=== PATIENT | female | born 1940 | race Caucasian/White ===

== ENCOUNTER → 2016-04-14 | Outpatient (CLI) | payer MEDICARE, OTHER ==
[~2016-04-14] MED LIST: ACTIGALL300 M1 PO; ANUSOL-HC CREAM30 GM TOP; ASCORBIC ACID500 MG PO; B-COMPLEX WITH1 EACH PO; BUMEX1 MG PO; CALCIUM 600 +1 EACH PO; CIPRO500 MG PO; CORDARONE,PACE200 MG PO; COUMADIN ** 9/62 MG PO; COUMADIN ** IA5 MG PO; COUMADIN **IA1 MG PO; COUMADIN **IA2.5 MG PO; DELTASONE5 MG PO; DULCOLAX10 MG R; FLORASTOR250 MG PO; K-TAB ER20 MEQ PO; LASIX40 MG PO; LEVOTHROID(SYN75 MCG PO; LEXAPRO10 MG PO; LIPITOR20 M1 PO; LOPRESSOR100 MG PO; MILK OF MA400 MG/5 M PO; MIRALAX17 GM PO; MOBIC7.5 MG PO; NACL TABS1 GM PO; NITROSTAT0.4 MG SL; OCEAN NASAL) (A44 ML NOSE; PAIN RELIEF650 MG PO; PROGRAF0.5 M1 PO; PROGRAF0.5 MG PO; PROTONIX40 MG PO; SUPER B COMPLE150 MG PO; TYLENOL325 MG PO; ULTRAM50 MG PO; VANCOCIN ORAL250 MG PO; VITAMIN B-12250 MCG PO; VITAMIN D-40400 UNIT PO; VITAMIN D35000 UNI1 PO; XANAX0.25 MG PO; ZAROXOLYN2.5 MG PO; ZOFRAN4 MG PO
== END | disposition disaster alternative care site (69) ==
LOC: LGSMG 15:43
DX: R31.9 Hematuria, unspecified (principal)

== ENCOUNTER → 2016-04-14 | Outpatient (CLI) | payer MEDICARE, OTHER | END | disposition disaster alternative care site (69) | LOC: GRAD 14:20 | DX: R31.9 Hematuria, unspecified (principal) ==

== ENCOUNTER → 2016-10-01 | Outpatient (CLI) | payer MEDICARE, OTHER | LOC: LGSMG 13:58 | DX: I12.9 Hypertensive chronic kidney disease with stage 1 through stage 4 chronic kidney disease, or unspecified chronic kidney disease (principal); N18.3 Chronic kidney disease, stage 3 (moderate); R31.9 Hematuria, unspecified ==

== ENCOUNTER 2016-10-05 17:30 | Inpatient (IN) | payer MEDICARE, OTHER ==
[~2016-10-05] VITALS: Ht 154.9 cm; Wt 52.2 kg
--- NOTE | ~2016-10-05 | HP ---
PATIENT'S NAME: MYRIAM REYES [facility] AGE: 76 Y [address] ROOM: [id number] [place], [place] [address] LOCATION: GPCU ADMIT DATE: 10/05/2016 History & Physical DISCHARGE DATE: FAMILY PHYSICIAN: Rio Magaña PA-C ATTENDING PHYSICIAN: JAZZY HASSAN DATE OF SERVICE: CHIEF COMPLAINT: PARESH on CKD stage 3 and exertional dyspnea, but it is getting better. HISTORY OF PRESENT ILLNESS: This is a 76-year-old female who is sent over here from the office from the Nephrology Clinic for management of PARESH on CKD stage 3. The patient was seen by chemical tank worker last Wednesday for an exertional dyspnea and with worsening of bilateral lower extremity edema and her diuretic regimen was increased. Bumex increased to 2 mg twice a day for 2 days and metolazone was increased from 2.5 mg every other day to 5 mg daily. Today, at followup clinic for followup, the patient's creatinine went up from 2.76 to 3, baseline creatinine 1.2-1.4. The patient also recently had a UTI and still on the ciprofloxacin 500 mg daily for 3 more days to finish. She also had a kidney stone followed by Dr. Pruitt as an outpatient and currently there is no surgical intervention needed, but just conservative management. The patient is pretty asymptomatic from the kidney stone problem. Today, the patient also had a followup echo performed at [facility] earlier today this morning, just as a regular followup echo. She says that since the thyroid regimen was increased, her leg edema has improved and her exertional dyspnea has also improved. She states she has been losing weight, but she does not recall her actual weight today from yesterday. She denies any chest pain. Her only complaint now is some exertional dyspnea, but it is much better than her usual exertional dyspnea from before. She denies any dysuria, urinary frequency, or urgency. She denies any fever or chills. REVIEW OF SYSTEMS: As mentioned in history of present illness. All other systems were reviewed and were negative except those mentioned in history of present illness. PAST MEDICAL HISTORY: 1. History of aortic valve replacement and aorta repair in February 2014. 2. Status post left atrial appendage closure, also in February 2014. 3. 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 4. History of chronic atrial fibrillation, with cardioversion in the past. PATIENT'S NAME: MYRIAM REYES [facility] AGE: 76 Y [address] ROOM: [id number] [place], [place] [address] [facility]: [facility] ADMIT DATE: 10/05/2016 History & Physical DISCHARGE DATE: FAMILY PHYSICIAN: Rio Magaña PA-C ATTENDING PHYSICIAN: JAZZY HASSAN 5. Long-term anticoagulation on Coumadin. 6. Hypertension. 7. CKD stage 3. 8. Primary hypothyroidism. 9. Gastroesophageal reflux disease with history of peptic ulcer disease in the past. 10. History of gout. ALLERGIES: PENICILLIN, OXYCODONE, AND CLINDAMYCIN, WHICH CAUSE ANAPHYLAXIS. HOME MEDICATIONS: Currently has been reconciled. SOCIAL HISTORY: Denies any cigarette, alcohol, or any illegal drug use. FAMILY HISTORY: Both parents had heart problems with a history of open heart surgery in the past. PAST SURGICAL HISTORY: 1. Liver transplant. 2. Aortic valve replacement. 3. Cardioversion for AFib in the past. 4. Left atrial appendage closure. 5. Aortic valve replacement in the past. PHYSICAL EXAMINATION: VITAL SIGNS: At the time of the evaluation, temperature 97.9, heart rate 85, respirations 16, blood pressure 138/64, saturation 96% on room air. GENERAL APPEARANCE: Alert and oriented x3, currently in no acute distress. HEENT: Pupils are equally round and reactive to light. Extraocular muscles intact. Anicteric sclerae. Nasal turbinates are normal bilaterally. Dry oral mucosa. There is a mildly painful, hard mass close to the left side of the neck. NECK: No JVD. CARDIOVASCULAR: Irregularly irregular rate and rhythm. No murmur, no rubs, no gallops. RESPIRATORY: Clear to auscultation. No rales, no rhonchi, no wheezing, no crackles. ABDOMEN: Soft, nontender, nondistended, normal bowel sounds present. No mass. EXTREMITIES: Very mild pitting edema in bilateral lower extremities. SKIN: No ulcer, no rash, no cyanosis. NEUROLOGICAL: Grossly nonfocal. PATIENT'S NAME: MYRIAM REYES [facility] AGE: 76 Y [address] ROOM: [id number] [place], [place] [address] LOCATION: [facility] ADMIT DATE: 10/05/2016 History & Physical DISCHARGE DATE: FAMILY PHYSICIAN: Rio Magaña PA-C ATTENDING PHYSICIAN: JAZZY HASSAN LABORATORY DATA: Blood work from the clinic based on the paperwork came with the patient when in the clinic on October 05, 2016, at 2:19 p.m., shows sodium 133, potassium 2.6, albumin 2.6, GFR 16.1, phosphorus 4.9, glucose 175, calcium 9.7, BUN 87, chloride 94, CO2 34.6, creatinine 3.0. IMAGING STUDIES: None. ASSESSMENT AND PLAN: 1. Regarding her acute kidney injury on chronic kidney disease stage 3: Likely cause could be from overdiuresis. The plan will be consult Nephrology, where chemical tank worker has already placed the orders for admission. The patient will get additional 500 mL of normal saline given that the patient states that she feels thirsty and has not voided since arrival. We will check a renal panel again in the morning. Further plan depends on clinical course and per Nephrology and we will hold all the diuretics for now. 2. Regarding her hypokalemia: This is from the diuresis. It will be replaced with p.o. potassium chloride given that the patient cannot tolerate IV potassium chloride due to the burning sensation on the IV infusion. We will give her 40 mEq 3 doses every 4 hours and then check a renal panel again. 3. Regarding her history of chronic diastolic congestive heart failure: We will get an echo report that was done today at [facility] to be faxed here tomorrow morning. I will hold off on the diuretics in the setting of acute kidney injury on chronic kidney disease stage 3. Further plan will depend on clinical course. 4. Regarding history of aortic valve replacement: INR goal should be 2.5- 3.5, given that she has history of atrial fibrillation. INR will be checked right now, and Coumadin dosing per pharmacy for goal INR of 2.5- 3.5. 5. Regarding history of atrial fibrillation: As mentioned before, INR goal will be 2.5-3.5 in the setting of aortic valve replacement in the past. Currently, the patient's heart rate is under good control. Home medications will be reconciled and then can be addressed once they are ready. 6. Regarding her hypertension: Continue home medications with holding parameter. Once the home medication list is reconciled, then can be addressed. 7. Regarding her hypothyroidism: We will check her TSH and modify the home dose of levothyroxine if necessary. 8. Regarding her history of liver transplant from primary biliary cirrhosis: Continue the home prednisone once the home medication list is reconciled. 9. Regarding her mass on the left side of the neck: We will check a CT scan PATIENT'S NAME: MYRIAM REYES [facility] AGE: 76 Y [address] ROOM: [place] [address] LOCATION: [facility] ADMIT DATE: 10/05/2016 History & Physical DISCHARGE DATE: FAMILY PHYSICIAN: Rio Magaña PA-C ATTENDING PHYSICIAN: JAZZY HASSAN of the neck to make sure it is not a hematoma or to see what is the mass about. CT scan will be done without contrast. In case this is hematoma, of course, Coumadin will be held. In the meantime, INR is pending. Further plan will depend on clinical course. Depending on the INR, Coumadin can be decided to be held or to be dosing per pharmacy for INR goal of 2.5-3.5. Currently, I will be checking a CBC, liver function, and PTT as well to make sure she is not anemic. Further plan will depend on clinical course. 10. Deep vein thrombosis prophylaxis: She is already on Coumadin. 11. She is a DO NOT RESUSCITATE/DO NOT INTUBATE. Time spent in care on the day of admission is 35 minutes, where 10 minutes was spent on chart review, the remaining of the time was spent in interview, physical examination, and counseling. The counseling includes going over the plan of care and also addressing all the questions and concerns that the patient had. I answered all her questions to her satisfaction. I also went over the plan of care with the nurse. Further plan will depend on clinical course. 12. Regarding her urinary tract infection, we will continue the ciprofloxacin as ordered by Nephrology. UA already performed and looks clean. MD JEB CORTEZ/edwardl /[id number] D: [id number] T: [id number] HISTORY & PHYSICAL
--- NOTE | ~2016-10-05 | CON ---
PATIENT'S NAME: MYRIAM REYES [facility] AGE: 76 Y [address] ROOM: [id number] [place], [place] [address] LOCATION: GPCU ADMIT DATE: 10/05/2016 Consultation DISCHARGE DATE: FAMILY PHYSICIAN: Rio Magaña PA-C ATTENDING PHYSICIAN: JAZZY HASSAN DATE OF CONSULTATION: 10/06/2016 REFERRING PHYSICIAN: Pearl Espinal REQUESTING PROVIDER: Dr. Vaughn. REASON FOR CONSULTATION: History of valvular heart disease and chronic diastolic CHF. CHIEF COMPLAINT: Exertional dyspnea. HISTORY OF PRESENTING ILLNESS: The patient is a pleasant 76-year-old female, who was actually transferred from the Nephrology Clinic to the hospital for management of acute on chronic kidney disease. The patient has extensive cardiac history including history of bioprosthetic Trifecta valve, aortic valve replacement placed in February 2014. She also had a left atrial appendage occlusion at that time. Post left atrial appendage occlusion 2 months post surgery revealed that the appendage is completely occluded. She does have history of large PFO versus ASD with vsya-cu-ndfam shunting. There is also evidence of moderate mitral regurgitation, moderate to severe tricuspid regurgitation. The patient has been continued on oral anticoagulation and that is reasonable given the history of increasing gradient across the aortic valve over the past few months as well as history of severe pulmonary hypertension. As long as she does not have any significant bleeding issues, it might be reasonable to continue that. The patient was complaining of increasing shortness of breath when we saw her on the at [place] and at that time, I did increase her metolazone to 2.5 mg a half hour prior to Bumex. She was also taking Bumex 1 mg b.i.d. She did follow up with a popcorn vendor and Dr. Vaughn did increase her diuretics further due to her significant symptoms of dyspnea on exertion as well as shortness of breath. Her Bumex was increased to 2 mg b.i.d. for two days and metolazone was increased to 5 mg daily from every other day. Her baseline creatinine is between 1.2 to 1.4; however, when she was seen in followup, her creatinine increased to 3 and she was hence sent to the hospital for close followup and evaluation. PATIENT'S NAME: MYRIAM REYES [facility] AGE: 76 Y [address] ROOM: [place] [address] LOCATION: GPCU ADMIT DATE: 10/05/2016 Consultation DISCHARGE DATE: FAMILY PHYSICIAN: Rio Magaña PA-C ATTENDING PHYSICIAN: JAZZY HASSAN The patient reports her breathing is quite stable since her diuretics were increased. She also has been doing fairly well in terms of a urine output on IV hydration as well as albumin. Her creatinine has improved some to 2.5. Her urine output was about 700 mL in the last 24 hours. All her antihypertensive agents are being held due to hypotension and her renal function is being monitored closely. She does not have any significant chest discomfort or pressure with exertion. She does not have any palpitations. Dyspnea on exertion is stable and chronic. She denies dizziness. She does not have any fever or chills. No changes in her strength, sensation, or speech. She does not have any changes in her urination. No fever or chills. REVIEW OF SYSTEMS: All review of systems discussed with the patient. Pertinent positives and negatives mentioned in the history of presenting illness. PAST MEDICAL AND PAST SURGICAL HISTORY: 1. History of Trifecta bioprosthetic aortic valve replacement and aorta repair in February 2014, status post left atrial appendage closure also in 2014. 2. History of liver transplant for primary biliary cirrhosis in 2001, on chronic immunosuppression. 3. History of chronic permanent atrial fibrillation. The patient is on long- term anticoagulation on Coumadin. 4. Hypertension. 5. CKD stage 3 to 4. 6. Primary hypothyroidism. 7. Gastroesophageal reflux disease with history of peptic ulcer disease and GI bleed in the past. 8. History of gout. ALLERGIES: PENICILLIN, OXYCODONE, AND CLINDAMYCIN. ALL CAUSE ANAPHYLAXIS. MEDICATIONS: Please see MAR. SOCIAL HISTORY: No alcohol, illicit drug abuse, or cigarette smoking at this time. FAMILY HISTORY: No premature coronary artery disease or sudden cardiac . PATIENT'S NAME: MYRIAM REYES [facility] AGE: 76 Y [address] ROOM: [place] [address] LOCATION: GPCU ADMIT DATE: 10/05/2016 Consultation DISCHARGE DATE: FAMILY PHYSICIAN: Rio Magaña PA-C ATTENDING PHYSICIAN: JAZZY HASSAN PHYSICAL EXAMINATION: VITAL SIGNS: Blood pressure is 98/51, pulse is 78, respirations 20. She is afebrile. Negative urine output of 700 mL overnight. GENERAL APPEARANCE: Alert and oriented x3, not in any apparent distress. HEENT: Head: Atraumatic, normocephalic. Nose: Nasal turbinates normal. Mucous membranes are dry. SKIN: Turgor increases to rigidity. Warm and dry. NECK: No obvious JVD. HEART: S1 and S2. Irregular rate and rhythm. A 3/6 systolic murmur best heard in the right lower sternal border as well as apex. LUNGS: Clear to auscultation bilaterally. Decreased breath sounds in the bases. No wheezing. ABDOMEN: Soft. Bowel sounds positive. EXTREMITIES: No significant lower extremity edema. NEURO: Able to move all extremities against gravity. MUSCULOSKELETAL: No significant joint swelling noted. LAB WORK: Sodium 138, potassium 3.9, chloride 99, CO2 of 32, glucose 119, BUN 81, creatinine 2.5. Albumin 2.1, globulin 4.7, AST 51, ALT 40, alkaline phosphatase 118, GFR 37. Magnesium 2.3. CPK 37, CK-MB 0.9. Troponin 0.040. ProBNP is 5936. WBC 5.9, H and H 9.3 and 29.1, and platelets are 86. INR is 2.4. Chest x-ray from today pending. Chest x-ray from 10/01 shows cardiac enlargement with vascular congestion. Echocardiogram from 10/05/2016 shows normal LV systolic function. There is evidence of moderate MR as well as moderately increased gradients across the Trifecta tissue bioprosthetic aortic valve. There is evidence of shunting from left to right suggestive of elevated left atrial pressures. IVC is dilated. There is evidence of pulmonary hypertension, mild to moderate TR. Normal LV systolic function. The patient is in atrial fibrillation, not able to comment accurately on diastolic function, elevated E to E prime suggestive of diastolic dysfunction. Full report to follow on [place]. IMPRESSION: 1. Chronic diastolic congestive heart failure, currently NYHA class III. 2. Chronic atrial fibrillation, status post left atrial appendage occlusion, rates are well controlled on beta-miles. 3. Hypertension, essential, well controlled. However, her antihypertensives are on hold given the hypotension from being hypovolemic from overdiuresis. PATIENT'S NAME: MYRIAM REYES [facility] AGE: 76 Y [address] ROOM: [id number] [place], [place] [address] LOCATION: GPCU ADMIT DATE: 10/05/2016 Consultation DISCHARGE DATE: FAMILY PHYSICIAN: Rio Magaña PA-C ATTENDING PHYSICIAN: JAZZY HASSAN 4. Acute on chronic kidney injury with significant worsening of her renal function, baseline creatinine 1.2 to 1.4. Her creatinine today is 2.5; however, she is having good urine output. We will hydrate her cautiously while monitoring her renal and heart failure function closely. Once she is euvolemic, we will reinitiate her antihypertensive agents as well as diuresis with close monitoring of her symptoms as well as her renal function. 5. History of primary biliary cirrhosis, status post liver transplant in 2001, on chronic immunosuppression. 6. History of nonrheumatic aortic valve insufficiency, status post Trifecta tissue aortic valve replacement in 2014 with increasing gradients and the mean gradient across the valve is about 25 mmHg. This has increased compared to her prior echocardiogram. Her peak velocities across the aortic valve are about 3.4 m/sec. Given the increasing gradient, it may be reasonable to continue the oral anticoagulation since she is not having any bleeding issues and has been tolerating it well since her surgery. There is some data to show that with increasing gradient, it may be reasonable to continue Coumadin as valvular thrombosis is sometimes a concern in these patients. 7. Moderate mitral regurgitation on echo and this has not changed significantly compared to her prior echocardiogram. 8. There is evidence of pulmonary hypertension on echocardiogram. Her previous RV systolic pressure was about 58 mmHg. Given her moderate to severe pulmonary hypertension, I think this is another indication to continue the Coumadin if possible with an INR goal of 2 to 3. 9. Chronic kidney disease stage 4. Most recent creatinine is 2.5. She is having good urine output. We will hold her diuretics for now. I agree with Nephrology. 10. Moderate tricuspid regurgitation as well as evidence of patent foramen ovale with left to right shunting. PLAN: At this time, we will need to monitor her renal function carefully with some IV hydration. We will re-initiate her diuretics once she is euvolemic as well as her antihypertensive agents. She is tolerating metoprolol 100 b.i.d. and that is being used for rate control at this point. Again, I think there is enough reason to continue Coumadin not for atrial fibrillation, but increasing gradient across the aortic valve as well as severe pulmonary hypertension. There is no evidence of PFO closure at this time. It is actually acting as a pop-off valve and is helpful for her. Her overall prognosis is quite poor given her cardiorenal syndrome and we will just need to monitor her very closely with strict instructions as to take an extra dose of diuretics with weight gain upon discharge. PATIENT'S NAME: MYRIAM REYES [facility] AGE: 76 Y [address] ROOM: [place] [address] [facility] ADMIT DATE: 10/05/2016 Consultation DISCHARGE DATE: FAMILY PHYSICIAN: Rio Magaña PA-C ATTENDING PHYSICIAN: JAZZY HASSAN Thank you very much for allowing us to participate in the care of Ms. Reyes. HARSH AVALOS MD AT/modl /[id number] d: [id number] t: 10/08/16 1700, CONSULTATION REPORT
[~2016-10-05 17:30] MED LIST changes: -ANUSOL-HC CREAM30 GM TOP; -CIPRO500 MG PO; -NITROSTAT0.4 MG SL; -OCEAN NASAL) (A44 ML NOSE; -SUPER B COMPLE150 MG PO; -TYLENOL325 MG PO; -VITAMIN B-12250 MCG PO; -ZAROXOLYN2.5 MG PO
--- NOTE | 2016-10-05 18:59 | NUR ---
Patient admitted to floor at 1815 as a direct admit from Dr. Vaughn's office with Acute Kidney Injury. Patient is alert, oriented, and able to make all needs known.
[2016-10-05 20:44] LABS: BILIRUBIN URINE NEGATIVE (NEGATIVE); BLOOD URINE 10 /UL (NEGATIVE); COLOR URINE YELLOW (YELLOW); GLUCOSE URINE NEGATIVE (NEGATIVE); KETONE URINE NEGATIVE (NEGATIVE); LEUKOCYTES URINE NEGATIVE /UL (NEGATIVE); NITRITE URINE NEGATIVE (NEGATIVE); PROTEIN URINE 15 mg/dL (NEGATIVE); SPEC GRAVITY URINE 1.005 (1.003-1.035); TURBIDITY URINE CLEAR (CLEAR); UROBILINOGEN URINE NORMAL (NORMAL)
[2016-10-05 21:01] LABS: BACTERIA URINE NEGATIVE (NEGATIVE); EPITHELIAL URINE 0-2 #/HPF (NEGATIVE); RBC URINE 0-2 #/HPF (NEGATIVE); WBC URINE NEGATIVE #/HPF (NEGATIVE)
[2016-10-05 23:24] LABS: BASOPHIL % 0.2 %; EOSINOPHIL % 0.2 %; HEMATOCRIT 29.1 % (33.0-46.0); HEMOGLOBIN 9.3 g/dL (10.0-15.0); IMMATURE GRANULOCYTE % 0.2 %; LYMPHOCYTE # 1.4 K/uL (0.8-4.0); LYMPHOCYTE % 27.1 %; MCH 31.8 pg (27.0-34.0); MCV 99.7 fl (83.0-98.0); MONOCYTE # 0.3 K/uL (0.0-1.0); MONOCYTE % 6.6 %; MPV 10.4 fl (9.4-12.4); NEUTROPHIL # (ANC) 3.4 K/uL (1.8-7.8); NEUTROPHIL % 65.7 %; NRBC % 0 /100WBC (0-0.00); PLATELET COUNT 86 K/uL (150-450); RBC 2.92 M/uL (3.50-5.50); RDW-CV 16.9 % (11.9-14.6); WBC 5.2 K/uL (4.0-11.0)
[2016-10-05 23:32] LABS: INR - (THERAPEUTIC) 2.43 (0.92-1.07); PROTIME 25.7 SECONDS (9.8-11.4)
[2016-10-05] MEDS ORDERED: COUMADIN ** 9/62 MG PO (23:38)
[2016-10-05] MEDS ORDERED: ZAROXOLYN2.5 MG PO (23:40)
[2016-10-05] MEDS ORDERED: NITROSTAT0.4 MG SL (23:41)
[2016-10-05] MEDS ORDERED: SUPER B COMPLE150 MG PO (23:42)
[2016-10-05] MEDS ORDERED: TYLENOL325 MG PO (23:42)
[2016-10-05 23:44] LABS: ALBUMIN 2.3 gm/dL (3.5-5.0); MAGNESIUM 2.3 mg/dL (1.8-2.6); TOTAL BILIRUBIN 1.8 mg/dL (0.0-1.5)
[2016-10-05] MEDS ORDERED: VITAMIN D35000 UNI1 PO (23:44)
[2016-10-05] MEDS ORDERED: VITAMIN B-12250 MCG PO (23:44)
[2016-10-05] MEDS ORDERED: CIPRO500 MG PO (23:45)
--- NOTE | 2016-10-06 04:37 | NUR ---
Significant Event: A/O x3. Afebrile. Denies pain. SBP 100-130s. HR 80s. LS clear/dim. No edema. Started KCL gtt, patient unable to tolerate/complained of pain in IV site with no other symptoms. KCL gtt dc'd. 40meq kcl x2 po given, 3rd dose @ 0600. NS @ 100/hr for 500ml. 40mg Protonix given. up standby assist. cardiac diet. Follow up: hematest x3 needed.
[2016-10-06 05:06] LABS: INR - (THERAPEUTIC) 2.43 (0.92-1.07); PROTIME 25.7 SECONDS (9.8-11.4)
[2016-10-06 05:12] LABS: ALBUMIN 2.1 gm/dL (3.5-5.0); CREATININE 2.4 mg/dL (0.5-1.1); PHOSPHORUS 3.8 mg/dL (2.5-4.9)
[2016-10-06 07:56] LABS: ANION GAP 10.9 (10.0-19.0); CALCIUM 9.1 mg/dL (8.5-10.5); CREATININE 2.5 mg/dL (0.5-1.1); POTASSIUM 3.9 mMol/L (3.7-5.1)
--- NOTE | 2016-10-06 12:54 | NUR ---
Introduced self and CM role to Irina. Irina tells me that she lives at home in [place], plan is to return there upon dismissald. Irina is but her doesn't live at home, he is in a memory care unit there in [place]. PCP is Dr.Aaron Magaña. Irina manages her own medications at baseline, the pharmacy sets up her pills in a pill box for her so she has no issues with managing her medications. She tells me that she has a FWW, 4WW and a cane at home that she uses on a regular basis, mostly when she is outside or walking long distances. Denies the need for any additional DME or HHC. Irina tells me that her daughter, Sofy will come and pick her up when she is ready to go home. She tells me that she has 4 daughters, 3 live in [place] and Sofy lives in [place], it is her eventual plan to move out with her other three daughters in [place], but they have to find a place for first before they can move out there. Left my name on her whiteboard incase any other additional questions come up. No other questions, needs or concerns. CM to continue to follow and assist. Plan home.
--- NOTE | 2016-10-06 16:30 | NUR ---
Significant Event:A/Ox3. VSS on RA. Afebrile. Albumin ordered Q12h to run over four hours. U/S of soft tissue at L)neck to be completed. Transfers SBA. Cream/suppository ordered for hemorroids. Follow up:Continue to monitor.
[2016-10-07 04:12] LABS: INR - (THERAPEUTIC) 2.4 (0.92-1.07); PROTIME 25.4 SECONDS (9.8-11.4)
[2016-10-07 04:20] LABS: ALBUMIN 2.9 gm/dL (3.5-5.0); ANION GAP 10.7 (10.0-19.0); CALCIUM 8.9 mg/dL (8.5-10.5); CREATININE 2.4 mg/dL (0.5-1.1); PHOSPHORUS 2.9 mg/dL (2.5-4.9); POTASSIUM 3.7 mMol/L (3.7-5.1)
--- NOTE | 2016-10-07 05:44 | NUR ---
Significant Event: PATIENT ORIENTED X3. VSS. 02 97-99% ON RA. HR 80-84. A-FIB. RESP 16-24. AFEBRILE. LUNGS CLEAR TO CLEAR AND DIMINISHED. BP 115-120 SYSTOLIC, 53-65 DIASTOLIC. IV TO L) FOREARM SALINE LOCKED. FLUSHES WELL, GOOD BLOOD RETURN. PATIENT SBA. VOIDS PER RESTROOM. PATIENT COMPLAINS OF GENERALIZED CHRONIC PAIN. TYLENOL GIVEN X1. PATIENT HAS SMALL MASS TO THE L) NECK AND IS SCHEDULED FOR AN MRI OF THIS AREA IN THE AM. PATIENT ALSO HAS REDNESS TO THE CHEST REPORTED FROM A PREVIOUS HEART SURGERY. NO BMS THIS SHIFT. BOWEL SOUNDS ACTIVE. 1+ EDEMA TO BILATERAL FEET AND ANKLES. UPON THIRD ASSESSMENT, PATIENT HAD NOSE BLEED. STOPPED SOON AFTER ON ITS OWN. PATIENT STATES THAT SHE IS USED TO NOSE BLEEDS. PATIENT ALSO HAD A DRY COUGH THAT ACCOMPANIED NOSE BLEED. KLEENEXS TO THE AREA AND PRESSURE APPLIED BY THE PATIENT STOPPED THE NOSE BLEED. PATIETNT PLEASANT AND COOPERATIVE. DAUGHTER VISITED EARLIER THIS SHIFT AND IS ACTIVE IN CARES. Follow up: MRI FOR MASS ON NECK THIS AM. CONTINUE TO MONITOR PER PLAN OF CARE.
[2016-10-07 16:22] LABS: BASOPHIL % 0.2 %; EOSINOPHIL # 0.1 K/uL (0.0-0.5); EOSINOPHIL % 1.2 %; HEMATOCRIT 27.9 % (33.0-46.0); HEMOGLOBIN 8.9 g/dL (10.0-15.0); IMMATURE GRANULOCYTE % 0.2 %; LYMPHOCYTE # 1.2 K/uL (0.8-4.0); LYMPHOCYTE % 25.6 %; MCH 31.8 pg (27.0-34.0); MCHC 31.9 gm/dL (32.0-36.5); MCV 99.6 fl (83.0-98.0); MONOCYTE # 0.5 K/uL (0.0-1.0); MONOCYTE % 10.6 %; MPV 9.8 fl (9.4-12.4); NEUTROPHIL % 62.2 %; NRBC % 0 /100WBC (0-0.00); PLATELET COUNT 82 K/uL (150-450); RDW-CV 17.5 % (11.9-14.6); WBC 4.8 K/uL (4.0-11.0)
--- NOTE | 2016-10-07 18:10 | NUR ---
Significant Event: pt up farah and in room standby. US done of left neck swelling. ICE can be applied prn pt refuse. Hgb redrawn this heather, dr Bobby here. 2 bms today, one sent for hematest. Pt daughther here with her. Pt needed applesauce with meds. Follow up:
[2016-10-08 04:37] LABS: EOSINOPHIL % 0.6 %; HEMOGLOBIN 8.2 g/dL (10.0-15.0); LYMPHOCYTE # 0.8 K/uL (0.8-4.0); LYMPHOCYTE % 21.9 %; MCH 31.1 pg (27.0-34.0); MCHC 31.5 gm/dL (32.0-36.5); MCV 98.5 fl (83.0-98.0); MONOCYTE # 0.4 K/uL (0.0-1.0); MPV 11.2 fl (9.4-12.4); NEUTROPHIL # (ANC) 2.4 K/uL (1.8-7.8); NEUTROPHIL % 67.5 %; NRBC % 0 /100WBC (0-0.00); PLATELET COUNT 74 K/uL (150-450); RBC 2.64 M/uL (3.50-5.50); RDW-CV 17.3 % (11.9-14.6); WBC 3.6 K/uL (4.0-11.0)
[2016-10-08 04:45] LABS: INR - (THERAPEUTIC) 2.12 (0.92-1.07); PROTIME 22.4 SECONDS (9.8-11.4)
[2016-10-08 04:52] LABS: ALBUMIN 2.7 gm/dL (3.5-5.0); ANION GAP 10.1 (10.0-19.0); CALCIUM 8.8 mg/dL (8.5-10.5); CREATININE 2.2 mg/dL (0.5-1.1); PHOSPHORUS 2.2 mg/dL (2.5-4.9); POTASSIUM 4.1 mMol/L (3.7-5.1)
--- NOTE | 2016-10-08 07:16 | NUR ---
Significant Event: PATIENT IS A/O X3. VSS. C/O PAIN. TYLENOL GIVEN. NOTICABLE CRACKLES TO LOWER BASES OF LUNGS, NOTICIABLE MURMUR, BOUNDING CAROTID PULSE. LIKELY NEEDS SOME LASIX DUE TO FLUID OVERLOAD. Follow up: ADDRESS FLUID OVERLOAD.
--- NOTE | 2016-10-08 13:34 | NUR ---
Talked with Juan Pablo' RN today about dismissal plans. She states that she is now having issues with being fluid overloaded so they are giving her IV Bumex to help with that and then maybe she can dismiss in a few days. I visited with Irina about this, she still tells me that her plan is to return home and her daughter will take her when she is ready to go. No other questions, needs or concerns. CM to continue to follow and assist.
--- NOTE | 2016-10-08 17:04 | NUR ---
PATIENT UP IN ROOM STAND BY ASSIST. VSS, SATS HIGH 90'S ON RA. PO BUMEX GIVEN. DAUGHTER AT BEDSIDE THIS AM.
[2016-10-09 04:58] LABS: INR - (THERAPEUTIC) 1.86 (0.92-1.07); PROTIME 19.7 SECONDS (9.8-11.4)
[2016-10-09 05:03] LABS: ALBUMIN 2.6 gm/dL (3.5-5.0); ANION GAP 10.5 (10.0-19.0); CALCIUM 8.7 mg/dL (8.5-10.5); PHOSPHORUS 2.8 mg/dL (2.5-4.9); POTASSIUM 3.5 mMol/L (3.7-5.1)
--- NOTE | 2016-10-09 11:00 | NUR ---
PT MOVED TO NO RISK W/ INTAKE AVERAGING 70%. WILL CONT ENSURE COMPACT BID TO MAINTAIN NUTRITION STATUS. WILL F/U IN 7-10 DAYS.
--- NOTE | 2016-10-09 19:26 | NUR ---
PATIENT UP TO CHAIR AND BR W/ STAND BY ASSIST. VSS, SATS HIGH 90'S ON RA. INCREASED BUMEX PO TO BID, GAVE PO POTASSIUM.
--- NOTE | 2016-10-10 04:01 | NUR ---
Significant Event: A&Ox3, SBP: 100-140s, HR: afib 90s-110s, 96% on room air, afebrile, denies pain. Dry cough noted. Voiding well, patient chooses to eat ice chips only tonight. Takes pills whole with applesauce. Up ad-fariba, steady gait. Rested well tonight. Follow up: continue with plan of care. Possible home in a few days.
[2016-10-10 05:53] LABS: INR - (THERAPEUTIC) 1.77 (0.92-1.07); PROTIME 18.7 SECONDS (9.8-11.4)
[2016-10-10 06:13] LABS: ALBUMIN 2.6 gm/dL (3.5-5.0); ANION GAP 10.9 (10.0-19.0); CALCIUM 8.6 mg/dL (8.5-10.5); CREATININE 1.9 mg/dL (0.5-1.1); PHOSPHORUS 2.9 mg/dL (2.5-4.9); POTASSIUM 3.9 mMol/L (3.7-5.1)
--- NOTE | 2016-10-10 17:41 | NUR ---
A&O. AD RIMA. NO C/O PAIN. LS CLEAR. VD PER BR BM X1 STRICT I&O, DAILY STANDING WT. CSM WNL. LABS TRENDING DOWN. SBP 120'S-150'S. HR A FIB 80'S-100'S. RA. AFEBRILE. 1200 FLUID RESTRICT. ICE CHIPS IV L FA SL. CONT PLAN OF CARE
--- NOTE | 2016-10-11 05:12 | NUR ---
Significant Event: A/O x3. Afebrile. Denies pain. VSS on RA. SBP 100-110s. Up adlib. Held lopressor for low blood pressure. 1-2+ lower leg edema. Cooperative with cares. Follow up: Continue to monitor per plan of care.
[2016-10-11 05:29] LABS: PROTIME 22.7 SECONDS (9.8-11.4)
[2016-10-11 05:32] LABS: INR - (THERAPEUTIC) 2.15 (0.92-1.07)
[2016-10-11 05:47] LABS: ALBUMIN 2.8 gm/dL (3.5-5.0); ANION GAP 10.4 (10.0-19.0); CALCIUM 8.8 mg/dL (8.5-10.5); CREATININE 1.7 mg/dL (0.5-1.1); POTASSIUM 3.4 mMol/L (3.7-5.1)
--- NOTE | 2016-10-11 15:41 | NUR ---
Significant Event:VSS.RA.TYLENOL GIVEN THIS AM FOR GENERALIZED PAIN WITH RELIEF.HAS BEEN UP IN THE ROOM INDEPENDENTLY. 40 MEQ OF KCL PO GIVEN THIS SHIFT. PROBABLY HOME TOMORROW. Follow up:WILL CONTINUE TO MONITOR PER PLAN OF CARE.
[2016-10-12 05:05] LABS: INR - (THERAPEUTIC) 2.32 (0.92-1.07); PROTIME 24.6 SECONDS (9.8-11.4)
[2016-10-12 05:09] LABS: ALBUMIN 2.7 gm/dL (3.5-5.0); ANION GAP 12.9 (10.0-19.0); CALCIUM 8.9 mg/dL (8.5-10.5); CREATININE 1.8 mg/dL (0.5-1.1); PHOSPHORUS 3.2 mg/dL (2.5-4.9); POTASSIUM 3.9 mMol/L (3.7-5.1)
--- NOTE | 2016-10-12 08:23 | NUR ---
Shift Summary: Patient is independent in the room. Tylenol for generalized aches and pains. Last dose with 0700 meds. Had 300ml output this shift. On strict I&O and daily wt. Takes meds with applesause. Plans to go home tomorrow.
--- NOTE | 2016-10-12 18:57 | NUR ---
PATIENT UP AD RIMA, UP TO CHAIR MOST OF SHIFT. CONTINUED IN A-FIB W/ RATES 80'S. SATS HIGH 90'S ON RA, SBP 90'S-108. FLUID RESTRICTION 1.2L /DAY ORDERED, INCREASED PO BUMEX.
[2016-10-13 03:59] LABS: BASOPHIL % 0.5 %; EOSINOPHIL % 0.5 %; HEMATOCRIT 27.5 % (33.0-46.0); HEMOGLOBIN 8.9 g/dL (10.0-15.0); IMMATURE GRANULOCYTE % 0.2 %; LYMPHOCYTE # 0.9 K/uL (0.8-4.0); LYMPHOCYTE % 22.7 %; MCH 32.5 pg (27.0-34.0); MCHC 32.4 gm/dL (32.0-36.5); MCV 100.4 fl (83.0-98.0); MONOCYTE # 0.3 K/uL (0.0-1.0); NEUTROPHIL # (ANC) 2.8 K/uL (1.8-7.8); NEUTROPHIL % 69.1 %; NRBC % 0 /100WBC (0-0.00); PLATELET COUNT 83 K/uL (150-450); RBC 2.74 M/uL (3.50-5.50); RDW-CV 17.9 % (11.9-14.6)
[2016-10-13 04:08] LABS: INR - (THERAPEUTIC) 2.32 (0.92-1.07); PROTIME 24.6 SECONDS (9.8-11.4)
[2016-10-13 04:15] LABS: ALBUMIN 2.7 gm/dL (3.5-5.0); ANION GAP 12.5 (10.0-19.0); CREATININE 1.9 mg/dL (0.5-1.1); PHOSPHORUS 3.3 mg/dL (2.5-4.9); POTASSIUM 3.5 mMol/L (3.7-5.1)
--- NOTE | 2016-10-13 04:42 | NUR ---
Significant Event: A/O x3. Afebrile. Denies pain. VSS on RA. SBP 93-131. HR 90s. LS clear dim. Up ad fariba. Lopressor held for blood pressure. Follow up: Possible discharge today
--- NOTE | 2016-10-13 16:00 | NUR ---
Social visit with Irina, she tells me that her plan is still home, she is hoping to get to go tomorrow. No concerns about returning home at this point, says that her daughter from [place] is here to stay with her for a few days post dismissal to help her out and make sure she is settled in ok. CM to continue to follow and assist. Plan home.
--- NOTE | 2016-10-13 16:04 | NUR ---
Significant event: A&Ox3. Ad-fariba in room. Walked in halls with PT, no c/o shortness of breath. RA. Bumex decreased to 0.5 mg BID. Lopressor changed to 50 mg TID. VSS. Follow Up: Watching labs per nephrology, possible discharge tomorrow.
--- NOTE | 2016-10-14 04:30 | NUR ---
Pt is A&Ox3. VSS on RA. IV to L forearm SL and flushes well. Up ad fariba in room. Pt complained of L shoulder joint soreness, tylenol given x1 with relief noted. Plan to d/c home today.
[2016-10-14 06:12] LABS: INR - (THERAPEUTIC) 2.28 (0.92-1.07); PROTIME 24.1 SECONDS (9.8-11.4)
[2016-10-14 06:25] LABS: ALBUMIN 2.5 gm/dL (3.5-5.0); ANION GAP 10.7 (10.0-19.0); CALCIUM 8.6 mg/dL (8.5-10.5); CREATININE 1.7 mg/dL (0.5-1.1); PHOSPHORUS 3.3 mg/dL (2.5-4.9); POTASSIUM 3.7 mMol/L (3.7-5.1)
[2016-10-14] MEDS ORDERED: ANUSOL-HC CREAM30 GM TOP (15:13)
[2016-10-14] MEDS ORDERED: BUMEX1 MG PO ×2 (15:22→15:23)
[2016-10-14] MEDS ORDERED: OCEAN NASAL) (A44 ML NOSE (15:26)
--- NOTE | 2016-10-14 19:10 | NUR ---
Patient dismissed to home. Educated patient on new medication list, congestive heart failure, follow-up appointments. VSS. Denies shortness of breath.
== END 2016-10-14 17:15 | disposition disaster alternative care site (69) | DRG 682 ==
LOC: GPCU 17:31
PROVIDERS: Family Medicine; Internal Medicine; Internal Medicine Nephrology; Physician Assistant; ADMIT Internal Medicine
DX: N17.9 Acute kidney failure, unspecified (principal); I50.33 Acute on chronic diastolic (congestive) heart failure; Z94.4 Liver transplant status; E86.1 Hypovolemia; I27.2 Other secondary pulmonary hypertension; I48.2 Chronic atrial fibrillation; E03.9 Hypothyroidism, unspecified; I08.1 Rheumatic disorders of both mitral and tricuspid valves; Q21.1 Atrial septal defect; I13.0 Hypertensive heart and chronic kidney disease with heart failure and stage 1 through stage 4 chronic kidney disease, or unspecified chronic kidney disease; E87.6 Hypokalemia; K21.9 Gastro-esophageal reflux disease without esophagitis; R22.1 Localized swelling, mass and lump, neck; Z79.01 Long term (current) use of anticoagulants; N18.4 Chronic kidney disease, stage 4 (severe)
CPT/HCPCS: A9270; J3480; J7040; J7050; J7507; J7512; P9047